=== PATIENT | female | born 1945 | race Caucasian/White ===

== ENCOUNTER 2021-10-18 10:00 | Outpatient (RCR) | payer MEDICARE, MEDICAID, SELFPAY ==
--- NOTE | 2021-09-13 14:13 | PTOPEVAL ---
Thank you for referring Nishi Faith to [facility].? The patient is scheduled to be seen for therapy?1-2/week for 4 weeks. Please review, sign, date and return this plan of care OSIEL. I agree with and certify that the following plan of care is medically necessary. Referring Physician Date Admitting Provider: Attending Provider: Laurie Purdy, ANP Referring Provider: *PT Outpatient Evaluation Start: 09/13/21 09:16 Freq: Status: Active Protocol: Document 09/13/21 09:15 AW (Rec: 09/13/21 14:13 AW [email or web address]) Therapy Assessment Status Assessment Status Assessment Status Evaluation Outpatient Past Medical History Past Medical History Source of Past Medical History Patient Neurological History Hx Neurological Disorders No Significant History Cardiovascular History Hx Cardiac Disorders No Significant History Respiratory History Hx Respiratory Disorders No Significant History Gastrointestinal History Hx Cholecystectomy Yes Hx Irritable Bowel Yes Genitourinary History Hx Other Genitourinary Disorders Yes: Prolapsed uterus surgery Musculoskeletal History Hx Arthritis Yes Hx Back Pain Yes: ~30 years Endocrine History Hx Diabetes Yes Psychosocial History Hx Depression Yes Evaluation Information Problem Diagnosis Knee pain Onset summer Subjective Information Pt states that she started Query Text:As Reported By Patient/ having knee pain this past Family summer and has noticed that it has become more difficult to stand or walk for longer than an hour and 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 She states that the R knee is worse than the L. She states that she also has been having back pain for years, primarily on the R side. Diagnostic Tests X-Rays For This Problem Yes MRI For This Problem No Other Tests For This Problem No Pain Assessment Timing of Pain Assessment Timing of Pain Assessment Pre-Treatment Self Report Self Report Pain Level 0 Pain Score Pain Score 0: Self Report Additional Pain Score Comments Pt reports no knee pain throughout therapy evaluation. She reports 10/10 pain at the greatest in her R knee. She states that on average it is 5 -6/10. Lower Extremity Range of
--- NOTE | 2021-10-11 10:03 | PCPTNOTE ---
Pt called and rescheduled today's appointment due to conflicting appointments.
--- NOTE | 2021-10-18 13:21 | PCPTNOTE ---
Admitting Provider: Attending Provider: Laurie Purdy, ANP Patient:Nishi Faith Date of :1945 10/18/21 PHYSICAL THERAPY DISCHARGE SUMMARY Nishi has been seen for 7 PT visits since initial evaluation. Overall she has reported an improvement in her pain reporting that she still gets it but it is less frequent. She reports that she has noticed less pain if she is more active and keeps up with her exercises. She has demonstrated an improvement in hamstring length as well as B hip/knee strength. PT provided education with pt on continuing to perform exercises as well as remain active, while still allowing her body to rest in order to continue to improve strength. She has met most of her goals and is being discharged this date with a home exercise program. She was invited to call with any questions/concerns regarding HEP. Thank you for referring this patient to [facility]. Please review, sign, date and return this discharge summary OSIEL. I have been updated about the patient's current status and I agree with discharge from the above service at this time. Referring Physician Date
== END 2021-12-09 09:06 | disposition home or self-care (01) ==
LOC: ANHHIPT 10:00
PROVIDERS: PCP Internal Medicine; Visit Provider Physician Assistant Medical
DX: M25.561 Pain in right knee (principal); M25.562 Pain in left knee
CPT/HCPCS: 97110; 97140; 97162

== ENCOUNTER 2023-01-16 11:00 | Outpatient (RCR) | payer MEDICARE, SELFPAY ==
--- NOTE | 2022-12-15 12:10 | PTOPEVAL1 ---
Assessment and note entered by Cecelia Cooper, PT Evaluation Information Assessment Status Evaluation Diagnosis bilat knee pain Onset chronic Subjective Information Last Summer and before that point knees have been bothersome. Fell last summer. Stepped wrong and started to try to catch herself and landed in [place]. Reported Pain Level Pain Score 1,0: Self Report Assessment PT Clinical Summary Pt presents w/ reports of bilat knee pain that is chronic in nature. Today left knee is more bothersome than right with tenderness on palpation to the prepatellar bursa. Pt demo's lack of knee extension in both knees, decreased knee stability L>R nichole with sit>stand activity, decreased functional strength quads with normal strength in formal testing. Pt will benefit from therapy to address deficits and pain to improve function. Plan of Care Interventions Electrical Stimulation,Hot Pack/Cold Pack,Manual Therapy,Neuro Re-education,Patient/Caregiver Educati,Therapeutic Activities,Therapeutic Exercise,Ultrasound PT Services Indicated Yes Treatment Frequency and 2x weekly x 4 weeks Duration These treatments will address the objective and functional deficits as defined above. The patient will be advanced safely and appropriately in order for the patient to progress towards his/her prior level of function. Additional exercises will be introduced and as well as a comprehensive home exercise program upon discharge, if needed, ?to ensure carryover of functional gains achieved in the clinic. This treatment plan has been reviewed and agreement upon by the patient.
--- NOTE | 2022-12-29 11:11 | PCPTNOTE ---
Patient called 12min after scheduled appointment wanting to double check when she was suppose to come in. Stated she lost track of time and also isn't feeling the best this date.
--- NOTE | 2023-01-18 14:19 | BUPTOPDC ---
Assessment and note entered by Cecelia Cooper, PT Assessment Status Discharge Diagnosis bilat knee pain Onset chronic Subjective Information Pt reports she is walking better, knees are a little better overall. Feels like balance has improved haven't had no problems with it Reports is watching how I get up off things , works on her posture States stairs are not problematic anymore Reports hasn't noticed much pain other than when sat all day. I don't really have to much trouble, unless I'm careless Reported Pain Level Pain Score 0,0: Self Report Assessment PT Clinical Summary Pt reports feels improved in her walking, states isn't having balance issues, and is watching how she gets up. Reports is using her tools she learned in therapy. Pt has demonstrated poor carry over between therapy sessions and has not been as consistent with home exercises as directed. However she appears to have improved overall in her right knee, and minimal improvement in her left knee during therapy. Pt appears to have met max benefit for therapy at this time. Has been advised ton continue her strengthening and icing and to discuss possible further options with referring provider if she feels her knees continue to bother her. Thus pt is being discharged from therapy services at this time for max benefit being met.
== END 2023-01-18 14:50 | disposition home or self-care (01) ==
LOC: ANHHIPT 11:00
PROVIDERS: PCP Physician Assistant Medical; Visit Provider Physician Assistant Medical
DX: M25.561 Pain in right knee (principal); M25.562 Pain in left knee; R26.89 Other abnormalities of gait and mobility
CPT/HCPCS: 97110; 97161; 97530

== ENCOUNTER 2023-08-28 08:00 | Outpatient (RCR) | payer MEDICARE, SELFPAY ==
--- NOTE | 2023-07-13 10:28 | OPREHPOC ---
Outpatient Therapy Plan of Care This is a Multidisciplinary Plan of Care that may contain components documented by all disciplines (PT, OT, and ST.) PT Problem 1 PT Problem #1 Knowledge Deficit PT Goal 1 Goal Patient will be independent with lumbar decompression HEP Target Visit 4 PT Problem 2 PT Problem #2 Pain PT Goal 1 Goal Report pain no greater than 2/10 with sit to stand activity Target Visit 8 PT Problem 3 PT Problem #3 Impaired Range of Motion PT Goal 1 Goal Improve kenna hip abduction to 40 degrees to improved capsular mobility for gait and squatting activity Target Visit 8 PT Goal 2 Goal Improve R hip internal rotation to 30 degrees to assist with capsular mobility with squatting and terminal stance activity PT Problem 4 PT Problem #4 Impaired Strength PT Goal 1 Goal Improve kenna hip abduction strength to 4/5 to improve lateral stability with ADLs and walking Target Visit 8
--- NOTE | 2023-07-13 10:29 | PTOPEVAL1 ---
Assessment and note entered by Dvean Haque, PT Evaluation Information Assessment Status Evaluation Diagnosis Lumbar spondylosis, Back pain, leg weakness, joint stiffness Onset July 2022 Subjective Information Reports that she has been hurting but is able to get around without medication. Has pain in both of her knees but recently has increased back pain. Does not feel therapy has helped knees too much. She has not been very active due to pain and is currently not doing any home exercises. Reported Pain Level Pain Score 7: Self Report Assessment PT Clinical Summary Patient presents with significant stiffness in R hip and weakness in bilateral hips reflected in gait and stability with ADLs. Overall has significant functional deficits in ROM and strength that are causing increased stress on lumbar spine and knees and compounding pain. Will benefit from skilled therapy to address these deficits. Plan of Care Interventions Electrical Stimulation,Hot Pack/Cold Pack,Manual Therapy,Mechanical Traction,Neuro Re-education, Therapeutic Activities,Therapeutic Exercise PT Services Indicated Yes Treatment Frequency and 2x/week for 4 weeks Duration These treatments will address the objective and functional deficits as defined above. The patient will be advanced safely and appropriately in order for the patient to progress towards his/her prior level of function. Additional exercises will be introduced and as well as a comprehensive home exercise program upon discharge, if needed, ?to ensure carryover of functional gains achieved in the clinic. This treatment plan has been reviewed and agreement upon by the patient.
--- NOTE | 2023-08-11 13:21 | PCPTNOTE ---
The patient treatment was not able to be completed on 08/09/23 due to staffing shortage. Will plan to continue treatment per plan of care.
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
== END 2023-09-12 08:50 | disposition home or self-care (01) ==
LOC: ANHHIPT 08:00
PROVIDERS: PCP Family Medicine; Visit Provider Neurological Surgery
DX: M47.896 Other spondylosis, lumbar region (principal)
CPT/HCPCS: 97110; 97112; 97140; 97161; 97750

== ENCOUNTER 2025-05-13 14:45 | Outpatient (RCR) | payer MEDICARE, SELFPAY ==
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
--- NOTE | 2025-03-21 13:42 | OPREHPOC ---
Outpatient Therapy Plan of Care This is a Multidisciplinary Plan of Care that may contain components documented by all disciplines (PT, OT, and ST.) PT Problem 1 PT Problem #1 Knowledge Deficit PT Goal 1 Goal / Goal Update Pt will be independent in HEP Pt will verbalize understanding of diagnosis and prognosis Target Visit 5 PT Problem 2 PT Problem #2 Impaired Balance PT Goal 1 Goal / Goal Update Pt will increase Tinettie score by 5 points showing improving balance Target Visit 5 PT Goal 2 Goal / Goal Update Pt will show moderate risk on Tinetti scale showing improvement from high risk. Target Visit 10 PT Problem 3 PT Problem #3 Impaired Gait PT Goal 1 Goal / Goal Update Pt will demonstrates 2 min walk test with or without AD of 240 ft for more functional gait. Target Visit 10
--- NOTE | 2025-04-03 17:04 | PCPTNOTE ---
Pt canceled physical therapy appointment on 04/01 due to bladder issues.
--- NOTE | 2025-04-09 15:26 | PCPTNOTE ---
Pt no showed physical therapy appointment this date. Called pt and left VM regarding possibly rescheduling appointment and have not heard back from pt yet.
--- NOTE | 2025-05-13 15:34 | PTOPDC ---
Assessment and note entered by Cecelia Cooper, PT Evaluation Information Assessment Status Discharge ICD-10 Condition Codes (PT) Repeated falls R29.6,Abnormalities of gait and mobility R26.9 Subjective Information Pt reports is feeling more confident now. States left knee still feels something is wrong in the back of the knee. Lady that works with your knee and gives you gel injections told her she may have a Ramos's cyst. Pt states is tired of her knee being bothersome. Reports is a lot better. States can walk better , not taking any medications. Pt reports doesn't bring her cane most places. Shopping in the grocery store reports back of her knee hurts and can only do so much shopping. States she is walking faster Still a little fear because she is being careful. Reported Pain Level Pain Score 1: Self Report Assessment PT Clinical Summary Pt has attended therapy consistently for gait and imbalance after a fall. She shows improvement from 55% confidence to 80% confidence in her mobility, increased from 2 min walk test of 160 ft with AD and three rest breaks, to 240 ft without AD or rest break. Her Tinetti score also increased from 13 to 22 bringing her firmly out of the high fall risk category. Pt has met all her goals for therapy. She was encouraged to participate in senior fitness activities to continue independent improvement overall and educated on when to return to therapy in the future if feels is needed. Thus patient is being discharged from therapy services for completion of program. Plan of Care PT Services Indicated No
== END 2025-05-22 08:18 | disposition home or self-care (01) ==
LOC: ANHHIPT 14:45
PROVIDERS: PCP Physician Assistant Medical; Visit Provider Physician Assistant Medical
DX: R26.89 Other abnormalities of gait and mobility (principal); R29.6 Repeated falls
CPT/HCPCS: 97110; 97112; 97162; 97530; 97750